=== PATIENT | male | born 1990 | race Caucasian/White ===

== ENCOUNTER 2018-04-08 14:09 | Emergency (ER) | payer OTHER | END 2018-04-08 14:52 | disposition home or self-care (01) | LOC: M ED 14:09 | DX: G89.29 Other chronic pain (principal); M54.9 Dorsalgia, unspecified; Z79.899 Other long term (current) drug therapy | CPT/HCPCS: 99282 ==

== ENCOUNTER 2018-08-13 19:25 | Emergency (ER) | payer OTHER ==
[2018-08-13] MEDS: GI COCKTAIL 50ML BTL(HYOSCYAMINE/MAALOX/LIDOCAINE VISCOUS)(1:3:1) PO (20:20)
[2018-08-13 20:38] LABS: BASO % 0.3 % (0.0-1.0); EOS # 0.4 10^3/uL (0.0-0.50); EOS % 4.2 % (0.0-3.0); HEMATOCRIT 43.8 % (42.0-52.0); IMMATURE GRANULOCYTE % 0.6 % (0-3.0); LYMPH # 2.5 10^3/uL (1.5-6.5); LYMPH % 28.4 % (24.0-44.0); MEAN CORPUSCULAR HEMOGLOBIN 27.6 pg (27.0-33.0); MEAN CORPUSCULAR HGB CONC 34.2 g/dl (32.0-36.5); MEAN CORPUSCULAR VOLUME 80.7 fl (80.0-96.0); MONO # 0.7 10^3/uL (0.0-0.8); MONO % 8.3 % (0.0-5.0); NEUTROPHILS # 5.1 10^3/uL (1.8-7.7); NEUTROPHILS % 58.2 % (36.0-66.0); PLATELET COUNT, AUTOMATED 226 10^3/uL (150-450); RED BLOOD COUNT 5.43 10^6/uL (4.30-6.10); RED CELL DISTRIBUTION WIDTH 13.1 % (11.5-14.5); WHITE BLOOD COUNT 8.8 10^3/uL (4.0-10.0)
[2018-08-13] MEDS: ALBUTEROL SULFATE 2.5 MG/0.5 ML INH NEB SOLN NEB (20:38)
[2018-08-13 20:44] LABS: D-DIMER QUANT 301.02 ng/ml (<500)
[2018-08-13 20:52] LABS: ANION GAP 8 MEQ/L (8-16); BLOOD UREA NITROGEN 21 MG/DL (7-18); CALCIUM LEVEL 8.3 MG/DL (8.5-10.1); CARBON DIOXIDE LEVEL 26 MEQ/L (21-32); CHLORIDE LEVEL 109 MEQ/L (98-107); CREATININE FOR GFR 1.02 MG/DL (0.70-1.30); GLOMERULAR FILTRATION RATE > 60.0 (>60); GLUCOSE, FASTING 100 MG/DL (70-100); POTASSIUM SERUM 4.4 MEQ/L (3.5-5.1); SODIUM LEVEL 143 MEQ/L (136-145)
[2018-08-13 21:12] LABS: CPK CREATINE PHOSPHOKINASE 202 U/L (39-308); MB/CK RELATIVE INDEX 0.64 (< OR =4); TROPONIN I < 0.02 NG/ML (< 0.10)
[2018-08-13] MEDS: ALBUTEROL 90 MCG/ACT 8GM HFA INHALER INH (22:48)
== END 2018-08-13 22:58 | disposition home or self-care (01) ==
LOC: M ED 19:25
DX: R07.89 Other chest pain (principal); R06.02 Shortness of breath; R06.89 Other abnormalities of breathing; Z82.49 Family history of ischemic heart disease and other diseases of the circulatory system; Z79.899 Other long term (current) drug therapy
CPT/HCPCS: 71046

== ENCOUNTER 2018-10-02 02:02 | Emergency (ER) | payer OTHER ==
[~2018-10-02 02:02] MED LIST: CLAR10CA3 PO; CYMB1CAP4 PO; MOTR200T44 PO; MULTCAP PO; PRED10TA2 PO; PROAAER10 INH; SKEL800T97 PO; TYLE500T78 PO; lyrica PO
[2018-10-02] MEDS ORDERED: PROP20TA72 (02:15)
[2018-10-02] MEDS ORDERED: LYRI75CA (02:15)
[2018-10-02] MEDS ORDERED: FLUO20CA19 (02:15)
[2018-10-02] MEDS ORDERED: HYDR50CA2 (02:15)
[2018-10-02] MEDS ORDERED: ZOLP5TAB (02:15)
[2018-10-02] MEDS ORDERED: MIRT15TA3 (02:15)
[2018-10-02] MEDS ORDERED: METAL LOCK LOOP XX ONE (02:33)
[2018-10-02] MEDS ORDERED: ACETAMINOPHEN TAB 650MG DOSE (2X325MG) PO ONE (03:30)
[2018-10-02 08:28] VITALS: BP 144/80
== END 2018-10-02 08:29 ==
LOC: M ED 02:02
DX: R45.851 Suicidal ideations (principal); F33.9 Major depressive disorder, recurrent, unspecified; Z79.899 Other long term (current) drug therapy; F17.210 Nicotine dependence, cigarettes, uncomplicated

== ENCOUNTER 2019-02-05 12:08 | Inpatient (IN) | payer OTHER ==
[~2019-02-05] VITALS: Ht 185.4 cm; Wt 142.0 kg
[~2019-02-05 12:08] MED LIST changes: +FLUO20CA19; +HYDR50CA2; +LYRI75CA; +MIRT15TA3; +PROP20TA72 PO; +ZOLP5TAB
[2019-02-05] MEDS ORDERED: BUSP10TA (12:49)
[2019-02-05] MEDS ORDERED: TOPI100T9 PO (12:49)
[2019-02-05] MEDS ORDERED: GABA-843 PO (12:49)
[2019-02-05] MEDS ORDERED: DOXE100CA PO (12:49)
[2019-02-05 13:59] LABS: HEMATOCRIT 43.5 % (42.0-52.0); HEMOGLOBIN 14.2 g/dl (13.5-17.5); MEAN CORPUSCULAR HEMOGLOBIN 26.3 pg (27.0-33.0); MEAN CORPUSCULAR HGB CONC 32.6 g/dl (32.0-36.5); MEAN CORPUSCULAR VOLUME 80.6 fl (80.0-96.0); PLATELET COUNT, AUTOMATED 214 10^3/uL (150-450); WHITE BLOOD COUNT 6.1 10^3/uL (4.0-10.0)
[2019-02-05 14:30] LABS: AMPHETAMINES LEVEL URINE NEGATIVE (NEGATIVE); BARBITURATES URINE NEGATIVE (NEGATIVE); BENZODIAZEPINES URINE NEGATIVE (NEGATIVE); CANNABINOIDS URINE NEGATIVE (NEGATIVE); COCAINE METABOLITE URINE NEGATIVE (NEGATIVE); METHADONE URINE NEGATIVE (NEGATIVE); OPIATES URINE NEGATIVE (NEGATIVE); PHENCYCLIDINE URINE NEGATIVE (NEGATIVE)
[2019-02-05 14:32] LABS: ACETAMINOPHEN LEVEL < 2.0 UG/ML (10.0-30.0); ALT/SGPT 77 U/L (12-78); BILIRUBIN,DIRECT 0.1 MG/DL (0.0-0.2); BILIRUBIN,TOTAL 0.4 MG/DL (0.2-1.0); BLOOD UREA NITROGEN 12 MG/DL (7-18); CALCIUM LEVEL 9.5 MG/DL (8.5-10.1); CARBON DIOXIDE LEVEL 29 MEQ/L (21-32); CHLORIDE LEVEL 107 MEQ/L (98-107); CREATININE FOR GFR 0.95 MG/DL (0.70-1.30); ETHYL ALCOHOL (ETHANOL) < 0.003 % (0.000-0.010); GLOMERULAR FILTRATION RATE > 60.0 (>60); GLUCOSE, FASTING 87 MG/DL (70-100); SALICYLATE LEVEL < 1.7 MG/DL (5.0-30.0); SODIUM LEVEL 142 MEQ/L (136-145); THYROID STIMULATING HORMONE 0.472 uIU/ML (0.358-3.740); TOTAL PROTEIN 7.2 GM/DL (6.4-8.2)
[2019-02-05] MEDS ORDERED: VITMTA PO (16:06)
[2019-02-05] MEDS ORDERED: FLUO20CA8 PO (16:06)
[2019-02-05] MEDS ORDERED: ARIP1TAB PO (16:06)
[2019-02-05] MEDS ORDERED: BUSP15TA47 PO (16:06)
[2019-02-05] MEDS ORDERED: traZODone 50 MG TAB PO PRN (16:30)
[2019-02-05] MEDS ORDERED: ACETAMINOPHEN TAB 650MG DOSE (2X325MG) PO PRN (16:30)
[2019-02-05] MEDS ORDERED: MAALOX 30 ML SUSP *UDC PO PRN (16:30)
[2019-02-05] MEDS ORDERED: MOM 30ML SUSPENSION UDC PO PRN (16:30)
[2019-02-05] MEDS ORDERED: PROPRANOLOL 20 MG TAB PO PRN (16:30)
[2019-02-05 17:45] VITALS: BP 141/77
[2019-02-05] MEDS: DOXEPIN 25 MG CAP PO SCH (20:39)
[2019-02-05] MEDS: TOPIRAMATE (TopAMAX) 100 MG TAB PO SCH (20:40)
[2019-02-05] MEDS: GABAPENTIN 300 MG CAP PO SCH (20:40)
[2019-02-05] MEDS: busPIRone 5 MG TAB PO SCH (20:40)
[2019-02-06 06:11] VITALS: BP 143/65
--- NOTE | 2019-02-06 07:46 | HPEPDOC ---
General Date of Admission February 05, 2019 at 16:21 Date of Service: February 06, 2019 Attending Physician: KENYATTA DICKENS MD Chief Complaint Patient is a 28-year-old male, who admitted to suicidal ideation for 1 week, and psychosis. He also admitted to auditory hallucinations. On assessment. He denies chest pain, shortness of breath, but does admit to history of hypertension for which he is not taking medications at this time. He is unable to remember the name of his blood pressure medication. History of Present Illness Patient is a 28-year-old male, admitted on account of severe depressive disorder with auditory hallucinations, insomnia, and suicidal ideation. Past medical history is significant for anxiety and depression. Home Medications Scheduled Aripiprazole (Aripiprazole) 10 Mg Tablet, 10 MG PO DAILY, (Reported) Buspirone HCl (Buspirone HCl) 15 Mg Tablet, 15 MG PO BID, (Reported) Doxepin HCl (Doxepin HCl) 100 Mg Capsule, 100 MG PO QHS, (Reported) Fluoxetine Hcl (Fluoxetine HCl) 20 Mg Capsule, 60 MG PO DAILY, (Reported) Gabapentin (Gabapentin) 300 Mg Capsule, 300 MG PO BID, (Reported) Multivitamins (Thera M Plus Tablet) 1 Each Tablet, 1 TAB PO DAILY, (Reported) Topiramate (Topiramate) 100 Mg Tablet, 100 MG PO QHS, (Reported) Scheduled PRN Propranolol HCl (Propranolol HCl) 20 Mg Tab, 20 MG PO BID PRN for ANXIETY, (Reported) Allergies Coded Allergies: No Known Allergies (Unverified , 07/07/17) Past Medical History Medical History Hypertension Obesity Nicotine dependence Depression Anxiety Surgical History Laparoscopic Appendectomy Family History Significant Family History: Heart disease CAD and myocardial infarction in father Social History * Smoker: greater than 1 pack/day, other (electronic cigarette) Alcohol: rarely Drugs: denies A-FIB/CHADSVASC A-FIB History Current/History of A-Fib/PAF?: No Current PO Anticoag Therapy: No Review of Systems Other systems A 10 point pertinent review of systems was completed, negative except as stated in the history of presenting illness. Physical Examination Other physical findings GENERAL: obese male in NAD SKIN : Warm, dry intact HEENT: Atraumatic, normocephalic, PERRL, moist mucous membrane CARDIOVASCULAR: Regular rate and rhythm, S1S2, no JVD, no edema, distal pulses + and palpable RESP: CTAB, no accessory muscle use noted ABDOMEN: BS+ non distended non tender MS: no joint deformities NEURO: Alert and oriented x 3, CN2-12 grossly intact PSYCH: no anxiety or agitation, appropriate mood and affect. Vital Signs Vital Signs Date Time Temp Pulse Resp B/P (MAP) Pulse Ox O2 Delivery O2 Flow Rate FiO2 02/06/19 06:11 97.5 80 18 143/65 (91) 02/05/19 18:08 98 Room Air Laboratory Data Labs 24H Laboratory Tests 2 02/05/19 13:37: Nucleated Red Blood Cells % (auto) 0.0, Anion Gap 6L, Glomerular Filtration Rate > 60.0, Calcium Level 9.5, Aspartate Amino Transf (AST/SGOT) 39H, Alanine Aminotransferase (ALT/SGPT) 77, Alkaline Phosphatase 81, Total Bilirubin 0.4, Direct Bilirubin 0.1, Total Protein 7.2, Albumin 4.0, Albumin/Globulin Ratio 1.25, Thyroid Stimulating Hormone (TSH) 0.472, Salicylates Level < 1.7L, Urine Amphetamines Screen NEGATIVE, Urine Benzodiazepines Screen NEGATIVE, Urine Opiates Screen NEGATIVE, Urine Methadone Screen NEGATIVE, Acetaminophen Level < 2.0L, Urine Barbiturates Screen NEGATIVE, Urine Phencyclidine Screen NEGATIVE, Urine Cocaine Metabolite Screen NEGATIVE, Urine Cannabinoids Screen NEGATIVE, Ethyl Alcohol Level < 0.003 CBC/BMP Laboratory Tests 02/05/19 13:37 Red Blood Count 5.40, Mean Corpuscular Volume 80.6, Mean Corpuscular Hemoglobin 26.3 L, Mean Corpuscular Hemoglobin Concent 32.6, Red Cell Distribution Width 13.0 Assessment/Plan Hypertension -Start lisinopril -Monitoring of blood pressure per unit protocol Morbid obesity -Has been advised on therapeutic lifestyle changes including tobacco cessation Nicotine dependence -Cessation discussed with patient Suicidal ideation -Management by primary team DVT prophylaxis -not indicated, patient is frequently ambulatory Plan / VTE VTE Prophylaxis Ordered?: No VTE Exclusion Mechanical Proph: Low Risk for VTE JOVANI ANTOINE February 06, 2019 07:46
[2019-02-06] MEDS: FLUoxetine 20 MG CAP PO SCH (08:13)
[2019-02-06] MEDS: MULTIVITAMINS/MINERALS THERAP 1 TAB PO SCH (08:13)
[2019-02-06] MEDS: GABAPENTIN 300 MG CAP PO SCH ×2 (08:13→20:19)
[2019-02-06] MEDS: busPIRone 5 MG TAB PO SCH ×2 (08:14→20:19)
[2019-02-06] MEDS ORDERED: ARIPiprazole 10 MG TAB PO SCH (09:00)
[2019-02-06] MEDS: LISINOPRIL 5 MG TAB PO SCH (13:23)
[2019-02-06] MEDS: NICOTINE 14 MG/24 HR TRANSDERMAL TD SCH (13:24)
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
[2019-02-06 17:52] VITALS: BP 117/72
[2019-02-06] MEDS: DOXEPIN 25 MG CAP PO SCH (20:18)
[2019-02-06] MEDS: PRAZOSIN 1 MG CAP PO SCH (20:19)
[2019-02-06] MEDS: TOPIRAMATE (TopAMAX) 100 MG TAB PO SCH (20:19)
[2019-02-07 06:40] VITALS: BP_SYST 131; BP_SYST 137; BP_DIAS 64; BP_DIAS 77
[2019-02-07] MEDS: NICOTINE 14 MG/24 HR TRANSDERMAL TD SCH (08:41)
[2019-02-07] MEDS: MULTIVITAMINS/MINERALS THERAP 1 TAB PO SCH (08:42)
[2019-02-07] MEDS: GABAPENTIN 300 MG CAP PO SCH ×2 (08:42→20:08)
[2019-02-07] MEDS: busPIRone 5 MG TAB PO SCH ×2 (08:42→20:07)
[2019-02-07] MEDS: FLUoxetine 20 MG CAP PO SCH (08:42)
[2019-02-07] MEDS: LISINOPRIL 5 MG TAB PO SCH (08:44)
--- NOTE | 2019-02-07 16:16 | IPN ---
DATE: 02/07/2019 CHIEF COMPLAINT: Says feels better. SUBJECTIVE: Seen for followup in the presence of staff. Says feels better, but that he has a hard time articulating it. Says is less anxious. Sleep has been improved. He feels he is "catching up." Appetite is good. MENTAL STATUS EXAMINATION: Neat, cooperative. No agitation. Answers questions logically, coherently. Affect somewhat restricted in range, but shows reactivity. Currently denies suicidal thoughts or intents. No homicidal ideas or intents. At present, does not appear to be internally preoccupied. No delusions elicited. Cognition is grossly intact. Judgment and insight fair, at best. ASSESSMENT: Major depressive disorder, possibly with psychosis. PLAN: Continue current care, observations, aripiprazole, fluoxetine, prazosin, buspirone. He is to be encouraged to participate in activities in the unit. Further recommendations will be made depending on the clinical picture. VITAL SIGNS: Blood pressure 145/63, pulse 50, temperature 97.4.
[2019-02-07 18:11] VITALS: BP 137/71
[2019-02-07] MEDS: DOXEPIN 25 MG CAP PO SCH (20:07)
[2019-02-07] MEDS: TOPIRAMATE (TopAMAX) 100 MG TAB PO SCH (20:07)
[2019-02-07] MEDS: ARIPiprazole 10 MG TAB PO SCH (20:07)
[2019-02-07] MEDS: PRAZOSIN 1 MG CAP PO SCH (20:08)
[2019-02-08 06:34] VITALS: BP 139/62
[2019-02-08] MEDS: MULTIVITAMINS/MINERALS THERAP 1 TAB PO SCH (08:29)
[2019-02-08] MEDS: FLUoxetine 20 MG CAP PO SCH (08:29)
[2019-02-08] MEDS: GABAPENTIN 300 MG CAP PO SCH ×2 (08:29→20:30)
[2019-02-08] MEDS: LISINOPRIL 5 MG TAB PO SCH (08:29)
[2019-02-08] MEDS: busPIRone 5 MG TAB PO SCH ×2 (08:29→20:31)
[2019-02-08] MEDS: NICOTINE 14 MG/24 HR TRANSDERMAL TD SCH (08:30)
[2019-02-08 18:01] VITALS: BP 122/58
[2019-02-08] MEDS: DOXEPIN 25 MG CAP PO SCH (20:30)
[2019-02-08] MEDS: TOPIRAMATE (TopAMAX) 100 MG TAB PO SCH (20:30)
[2019-02-08] MEDS: PRAZOSIN 1 MG CAP PO SCH (20:31)
[2019-02-08] MEDS: ARIPiprazole 10 MG TAB PO SCH (20:31)
[2019-02-09 06:52] VITALS: BP 176/74
[2019-02-09] MEDS: busPIRone 5 MG TAB PO SCH (08:20)
[2019-02-09 08:21] VITALS: BP 149/67
[2019-02-09] MEDS: GABAPENTIN 300 MG CAP PO SCH (08:21)
[2019-02-09] MEDS: LISINOPRIL 5 MG TAB PO SCH (08:21)
[2019-02-09] MEDS: MULTIVITAMINS/MINERALS THERAP 1 TAB PO SCH (08:21)
[2019-02-09] MEDS: FLUoxetine 20 MG CAP PO SCH (08:21)
[2019-02-09] MEDS: NICOTINE 14 MG/24 HR TRANSDERMAL TD SCH (08:22)
--- NOTE | 2019-02-09 09:09 | MHIPN ---
DATE: 02/08/2019 CHIEF COMPLAINT: Says feels better. SUBJECTIVE: Seen for followup. Indicates feels better, and that he is more rested, less anxious, less depressed. Says appetite is good. MENTAL STATUS EXAMINATION: Neat, cooperative, no agitation, no psychomotor retardation. He is coherent. Affect is reactive, more so than yesterday. He denies any suicidal thoughts or intents. No homicidal ideas or intents. Does not appear internally preoccupied. No delusions elicited. Cognition grossly intact. Judgment and insight are fair, possibly somewhat improved. ASSESSMENT: Major depressive disorder, with psychotic features. PLAN: Continue current care, the Abilify, fluoxetine, prazosin and buspirone. Continue encouragement in participation in activities on the unit. VITAL SIGNS: Blood pressure 139/62, temperature 97.5, pulse 70. He will be seeing his treatment team tomorrow.
[2019-02-09] MEDS ORDERED: ABIL1TAB11 PO (11:47)
[2019-02-09] MEDS ORDERED: MINI1CAP PO (11:47)
[2019-02-09] MEDS ORDERED: TOPI100T9 PO (11:47)
[2019-02-09] MEDS ORDERED: PROP20TA72 PO (11:47)
[2019-02-09] MEDS ORDERED: DOXE100CA PO (11:47)
[2019-02-09] MEDS ORDERED: NICO14PA TD (11:47)
[2019-02-09] MEDS ORDERED: BUSP15TA47 PO (11:47)
[2019-02-09] MEDS ORDERED: ABIL10TA9 PO (11:47)
[2019-02-09] MEDS ORDERED: GABA-843 PO (11:47)
[2019-02-09] MEDS ORDERED: FLUO20CA8 PO (11:47)
--- NOTE | 2019-02-09 21:05 | MHDSPDOC ---
[facility] Discharge Summary Discharge Summary DATE OF ADMISSION: February 05, 2019 at 16:21 DATE OF DISCHARGE: Feb 09, 2019 at 13:50 DISCHARGE DIAGNOSES: 1. Unspecified mood disorder REASON FOR ADMISSION: Patient is a 28 -year-old , male, who, according to Ed records: "Patient states that he has been in process of MED board for the last several months, and was here in September due to a depressive episode. States that at the time, he was also experiencing insomnia, hearing voices & having thoughts of suicide. He states that he had been doing fairly well until the last 1-2 weeks. During the last 1-2 weeks, he states that he has been having difficulty sleeping, feeling increasingly depressed, and more recently, having thoughts of suicide. He states that this morning he began experiencing AH again, although they are unable to discern & essentially jumbled whispers. He denies having any active plan for suicide, although continues to have the thoughts & is unable to guarantee his safety out side of the hospital" CONSULTANTS INVOLVED: None TREATMENT AND PROGRESS ON THE UNIT : upon initial evaluation the patient didn't seem to be depressed. He seemed to very concerned about his diagnosis, he metntioned several times that he was bipolar and that he had a schizophrenic grandmother. He said that he didn;t have any suicidal thoughts, they all had stopped since he walked inside the [facility], he denied having auditory hallucinations and when I asked him why did he think he had such a rapid improvement since he was at [facility], he said he didn't know. I asked him if he felt that being safe in there had something to do with it and he said he was not sure. He reported manic and depressive symptoms and according to him, they all had started 3 weeks ago, he said as soon as the manic/depressive symptoms would "switch off, the others would start". He said he was very ill, that is why he was admitted but he didn't look like that at [facility]. He didn't attend groups, he was not invested in his treatment. His hygiene and grooming were good, he had a good appetite and apparently his sleep was fine over the weekend. At the time of his discharge he was not suicidal, not homicidal and not psychotic. 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 The patient doesn't seem to be depressed and he doesn't seem to be manic either. Improvements happen while under medications and while on therapy but they don't occur wiithin a couple of hours. He said that he was ill but since he was evaluated, he requested to be discharged on Saturday, something that didn't make sense in a person that had brought himself to the ED claiming to be suicidal. the patient's presentation didn't match his history. HOSPITAL COURSE: As above DISCHARGE ASSESSMENT: The patient was not suicidal, not homicidal and not psychotic at the time of his discharge, he had a good response to medications and there were no side effects reported MENTAL STATUS EXAMINATION ON DISCHARGE: Patient is a 28-year old male, who is alert, cooperative, dressed in hospital clothes, obese. Speech is spontaneous and fluent, normal. Language skills are good. Thought processes including: intact. Thought content: focused on going back to [place]. Denies SI/HI. Abstract reasoning, and computation: good. Description of associations: intact. Description of abnormal or psychotic thoughts: denies AV hallucinations, denies thought delusions. Judgment: poor. Insight: poor. Orientation to x 4. Recent and remote memory: intact. Attention span and concentration: good. Language: normal. Fund of knowledge: average. Mood: euthymic. Affect: a little constricted. MEDICATIONS ON DISCHARGE: Scheduled Aripiprazole (Abilify) 10 Mg Tablet, 10 MG PO QHS for mood, #7 Aripiprazole (Abilify) 5 Mg Tablet, 5 MG PO QAM for mood, #7 Buspirone HCl (Buspirone HCl) 15 Mg Tablet, 15 MG PO BID for anxiety, #14 Doxepin HCl (Doxepin HCl) 100 Mg Capsule, 100 MG PO QHS for insomnia, #7 Fluoxetine Hcl (Fluoxetine HCl) 20 Mg Capsule, 60 MG PO DAILY for depression, #21 Gabapentin (Gabapentin) 300 Mg Capsule, 300 MG PO BID for mood/pain, #14 Multivitamins (Thera M Plus Tablet) 1 Each Tablet, 1 TAB PO DAILY, (Reported) Nicotine (Nicotine Patch) 14 Mg Patch.td24, 1 PATCH TD DAILY for nicotine cravings, #7 Prazosin HCl (Minipress) 1 Mg Capsule, 1 MG PO QHS for nightmares, #7 Topiramate (Topiramate) 100 Mg Tablet, 100 MG PO QHS for weight loss, #7 Scheduled PRN Propranolol HCl (Propranolol HCl) 20 Mg Tab, 20 MG PO BID PRN for ANXIETY, #14 PLAN/FOLLOWUP ARRANGEMENTS: Follow Up Care Education Label * Medical * Medical Follow Up [facility] * Established With This Provider Yes * Therapist [facility] SELLERS * Date Mar 06, 2019 * Time 13:40 * Follow Up Care Education Label * Mental Health Appt 1 * Mental Health 1st Embedded * Additional information IOP/DRUM1 BARRON OSORIO [id number]@0930 GRP/120 [facility]END[facility] CL/DRUM1 JUAN ROSADO [id number]@1300 FTR/30 PENDING BEHAVIORAL HEALTH CL/DRUM1 VADIM,MATIAS [id number]@1100 FTR/60 PENDING BEHAVIORAL HEALTH CL/DRUM1 VADIM,MATIAS [id number]@0900 FTR/60 PENDING BEHAVIORAL HEALTH CL/DRUM1 VADIM,MATIAS [id number]@1300 FTR/60 PENDING BEHAVIORAL HEALTH CL/DRUM1 VADIM,MATIAS [id number]@1100 FTR/60 PENDING BEHAVIORAL HEALTH CL/DRUM1 VADIM,MATIAS [id number]@1100 FTR/60 PENDING The amount of time spent in the coordination of care for this patient was approximately 30 minutes. Vital Signs/I&Os Vital Signs Date Time Temp Pulse Resp B/P (MAP) Pulse Ox O2 Delivery O2 Flow Rate FiO2 02/09/19 08:21 149/67 02/09/19 06:52 96.7 57 16 02/05/19 18:08 98 Room Air Medications Scheduled Aripiprazole (Abilify) 10 Mg Tablet, 10 MG PO QHS for mood, #7 Aripiprazole (Abilify) 5 Mg Tablet, 5 MG PO QAM for mood, #7 Buspirone HCl (Buspirone HCl) 15 Mg Tablet, 15 MG PO BID for anxiety, #14 Doxepin HCl (Doxepin HCl) 100 Mg Capsule, 100 MG PO QHS for insomnia, #7 Fluoxetine Hcl (Fluoxetine HCl) 20 Mg Capsule, 60 MG PO DAILY for depression, #21 Gabapentin (Gabapentin) 300 Mg Capsule, 300 MG PO BID for mood/pain, #14 Multivitamins (Thera M Plus Tablet) 1 Each Tablet, 1 TAB PO DAILY, (Reported) Nicotine (Nicotine Patch) 14 Mg Patch.td24, 1 PATCH TD DAILY for nicotine cravings, #7 Prazosin HCl (Minipress) 1 Mg Capsule, 1 MG PO QHS for nightmares, #7 Topiramate (Topiramate) 100 Mg Tablet, 100 MG PO QHS for weight loss, #7 Scheduled PRN Propranolol HCl (Propranolol HCl) 20 Mg Tab, 20 MG PO BID PRN for ANXIETY, #14 Allergies Coded Allergies: No Known Allergies (Unverified , 07/07/17) MARLO VALLE MD Feb 09, 2019 21:05
== END 2019-02-09 13:50 | disposition home or self-care (01) | DRG 885 ==
LOC: M ED 12:08 → M ED INP 16:21 → M PSY 17:43
PROVIDERS: ADMIT Psychiatry & Neurology Psychiatry; ATTEND Psychiatry & Neurology Psychiatry
DX: F39 Unspecified mood [affective] disorder (principal); R45.851 Suicidal ideations; G47.00 Insomnia, unspecified; Z79.899 Other long term (current) drug therapy; I10 Essential (primary) hypertension; F17.200 Nicotine dependence, unspecified, uncomplicated; E66.01 Morbid (severe) obesity due to excess calories; F41.9 Anxiety disorder, unspecified